=== PATIENT | male | born 1965 | race African-American/Black ===

== ENCOUNTER 2020-02-24 23:43 | Inpatient (IN) | payer SELFPAY ==
[~2020-02-24] VITALS: Ht 177.8 cm; Wt 73.5 kg
[2020-02-25] VITALS (7 sets, daily range): BP systolic 99–112; BP diastolic 58–67; Ht 177.8 cm; Wt 73.5 kg
[2020-02-25 00:27] LABS: BASOPHILS 0.2 % (0-2); HEMATOCRIT 27.4 % (42.0-54.0); IMMATURE GRANULOCYTES 0.5 % (0-5); LYMPHOCYTES 11.6 % (15-50); MCH 29.6 pg (26.0-34.0); MCHC 32.8 g/dL (31.0-37.0); MCV 90.1 fL (80.0-100.0); MEAN PLATELET VOLUME 8.4 fL (7.4-10.4); MONOCYTES 10.1 % (2-11); NEUTROPHILS 75.6 % (40-80); PLATELET COUNT 523 10x3/uL (130-400); RBC 3.04 10x6/uL (4.20-6.10); RDW 12.9 % (11.5-14.5); WBC 16.9 10x3/uL (4.8-10.8)
[2020-02-25 00:39] LABS: INR 1.08 (0.85-1.17)
[2020-02-25 00:47] LABS: ANION GAP 10.5 mmol/L (8-16); CALCIUM 8.7 mg/dL (8.5-10.1); CARBON DIOXIDE 23.6 mmol/L (21.0-32.0); CREATININE - SERUM 1.1 mg/dL (0.6-1.3); POTASSIUM - SERUM 4.1 mmol/L (3.5-5.1)
[2020-02-25 00:52] LABS: ALBUMIN 2.3 g/dL (3.4-5.0); BILIRUBIN - TOTAL 0.36 mg/dL (0.2-1.3); PROTEIN - SERUM 7.9 g/dL (6.4-8.2)
--- NOTE | 2020-02-25 02:45 | NUR ---
COVID SWAB COLLECTED AND SENT TO LAB.
--- NOTE | 2020-02-25 02:57 | NUR ---
PT TO ROOM 2103 VIA STRETCHER ACCOMPANIED BY HOSPITAL STAFF.
[2020-02-25 09:00] LABS: BASOPHILS 0.2 % (0-2); EOSINOPHILS 1.9 % (0-7); HEMATOCRIT 25.5 % (42.0-54.0); HEMOGLOBIN 8.3 g/dL (13.5-17.5); IMMATURE GRANULOCYTES 0.3 % (0-5); LYMPHOCYTES 12.9 % (15-50); MCH 29.2 pg (26.0-34.0); MCHC 32.5 g/dL (31.0-37.0); MCV 89.8 fL (80.0-100.0); MEAN PLATELET VOLUME 8.4 fL (7.4-10.4); NEUTROPHILS 76.7 % (40-80); PLATELET COUNT 581 10x3/uL (130-400); RBC 2.84 10x6/uL (4.20-6.10); RDW 12.8 % (11.5-14.5); WBC 12.9 10x3/uL (4.8-10.8)
[2020-02-25 09:22] LABS: ALBUMIN 1.9 g/dL (3.4-5.0); ANION GAP 11.6 mmol/L (8-16); BILIRUBIN - TOTAL 0.23 mg/dL (0.2-1.3); CALCIUM 8.3 mg/dL (8.5-10.1); CARBON DIOXIDE 24.2 mmol/L (21.0-32.0); CREATININE - SERUM 1.3 mg/dL (0.6-1.3); POTASSIUM - SERUM 3.8 mmol/L (3.5-5.1); PROTEIN - SERUM 6.9 g/dL (6.4-8.2)
[2020-02-25 09:25] LABS: % SATURATION 11 % (15-55); IRON 14 ug/dl (35-150); TOTAL IRON BIND CAPACITY 125 ug/dl (260-445); UNSAT IRON BIND CAPACITY 111 ug/dl (150-375)
--- NOTE | 2020-02-26 00:34 | NUR ---
RECIEVED REPORT FROM NAYELI SHEPARD.
[2020-02-26 03:54] VITALS: BP 99/66
[2020-02-26 05:47] LABS: BASOPHILS 0.4 % (0-2); EOSINOPHILS 2.2 % (0-7); HEMATOCRIT 28.2 % (42.0-54.0); HEMOGLOBIN 8.9 g/dL (13.5-17.5); IMMATURE GRANULOCYTES 0.5 % (0-5); LYMPHOCYTES 15.8 % (15-50); MCH 28.9 pg (26.0-34.0); MCHC 31.6 g/dL (31.0-37.0); MCV 91.6 fL (80.0-100.0); MEAN PLATELET VOLUME 8.5 fL (7.4-10.4); NEUTROPHILS 71.1 % (40-80); PLATELET COUNT 665 10x3/uL (130-400); RBC 3.08 10x6/uL (4.20-6.10); RDW 13.2 % (11.5-14.5); WBC 12.1 10x3/uL (4.8-10.8)
[2020-02-26 06:32] LABS: ALBUMIN 1.9 g/dL (3.4-5.0); ANION GAP 11.7 mmol/L (8-16); BILIRUBIN - TOTAL 0.22 mg/dL (0.2-1.3); C-REACTIVE PROTEIN 17.8 mg/dL (0.0-0.9); CALCIUM 8.7 mg/dL (8.5-10.1); CARBON DIOXIDE 26.4 mmol/L (21.0-32.0); CREATININE - SERUM 1.2 mg/dL (0.6-1.3); POTASSIUM - SERUM 4.1 mmol/L (3.5-5.1); PROTEIN - SERUM 7.4 g/dL (6.4-8.2)
[2020-02-26 07:17] VITALS: BP 87/50
[2020-02-26 07:44] VITALS: BP 99/56
[2020-02-26 11:40] VITALS: BP 117/57
[2020-02-26] MEDS ORDERED: AUGMENTIN 875-11 TAB PO (13:31)
--- NOTE | 2020-02-26 16:02 | NUR ---
ALERT AND ORIENTED X4. SITTING UP IN BED. FAMILY AT BEDSIDE. DISCHARGE INSTRUCTIONS GIVEN VERBALLY AND WRITTEN. DISCHARGE PAPERS SIGNED ON CHART. DC RT FA IV TIP INTACT. ESCORT TO RIDE VIA WHEELCHAIR. REMAINS FREE FROM INJURY.
--- NOTE | 2020-02-27 12:52 | MORECARE ---
CASE MANAGEMENT DISCHARGE SUMMARY PATIENT: YVON NGUYEN SR UNIT: [id number] ADM DATE: 02/25/20 AGE: 55 : 67 SEX: M ROOM/BED: D.2103 AUTHOR: THEO OWUSU PHYSICIAN: REFERRING PHYSICIAN: PEGGY LOCKE DO DATE OF SERVICE: 02/27/20 Discharge Plan Patient Name: YVON NGUYEN [facility] [facility] 1965 Planned Disposition: Home Anticipated Discharge Date: 02/26/20 Discharge Date: 02/26/2020 Expected LOS: 1 Initial Reviewer: [email or web address] Initial Review Date: 02/25/2020 Generated: 02/27/20 1:51 pm Patient Name: YVON NGUYEN Page [id number] at 1252 All edits/amendments must be made on the electronic document DICTATION DATE: 02/27/20 1251 GENERAL ADJUSTER: OSCAR 02/27/20 1251 RPT#: [id number] DC DATE:02/26/20 STATUS: DIS IN [facility] [address] [place] [address] END OF REPORT
== END 2020-02-26 16:03 | disposition home or self-care (01) | DRG 602 ==
LOC: D.ER 23:43 → D.M2 02-25 02:03
PROVIDERS: Family Medicine; ADMIT Family Medicine; ATTEND Family Medicine
DX: L03.116 Cellulitis of left lower limb (principal); E43 Unspecified severe protein-calorie malnutrition; Z68.23 Body mass index [BMI] 23.0-23.9, adult